=== PATIENT | female | born 1960 | race African-American/Black ===

== ENCOUNTER 2020-09-14 13:36 | Emergency (ER) | payer OTHER ==
[~2020-09-14] VITALS: Ht 162.6 cm; Wt 68.6 kg
[2020-09-14] MEDS: ALBUTEROL (0.083%) 2.5MG/3ML NEB HHN SCH ×2 (15:30→16:33)
[2020-09-14 15:39] LABS: BASOPHILS % 0.8 % (0.0-2.0); EOSINOPHILS % 1.8 % (0.0-5.0); HEMATOCRIT. 43.4 % (36.0-48.0); HEMOGLOBIN. 14.7 g/dL (12.0-16.0); LYMPHOCYTES % 28.2 % (20.0-50.0); MEAN CORPUSCULAR HEMOGLOBIN 27.5 pg (28.0-32.0); MEAN CORPUSCULAR VOLUME 81.6 fL (81.0-99.0); MEAN PLATELET VOLUME 8.4 fl (7.4-10.4); MONOCYTES % 4.6 % (2.0-8.0); NEUTROPHILS % 64.6 % (40.0-76.0); PLATELET 275 x1000/uL (130-400); RED BLOOD CELL COUNT 5.32 mill/uL (4.2-5.4); RED CELL DISTRIBUTION WIDTH 13.9 % (11.6-14.6)
[2020-09-14 15:42] LABS: CHLORIDE 107 mEq/L (98-107)
[2020-09-14] MEDS ORDERED: PREDNISONE 20MG TABLET PO ONE (18:00)
[2020-09-14] MEDS ORDERED: ASPIRIN 81MG TABLET PO ONE (18:00)
[2020-09-14 19:13] VITALS: BP 159/61
== END 2020-09-14 19:20 | disposition left against medical advice (07) ==
LOC: ER 13:36 → CANBEDREQ 19:41
DX: J44.1 Chronic obstructive pulmonary disease with (acute) exacerbation (principal); R79.89 Other specified abnormal findings of blood chemistry; I10 Essential (primary) hypertension; F17.210 Nicotine dependence, cigarettes, uncomplicated; Z71.6 Tobacco abuse counseling
CPT/HCPCS: 36415; 71045; 80053; 83880; 84484; 85025; 93005; 94640; 99285; 99406; J7512; Z7610